=== PATIENT | female | born 1965 | race Caucasian/White ===

== ENCOUNTER 2017-03-29 22:16 | Emergency (ER) | payer MEDICARE, MEDICAID ==
[~2017-03-29] VITALS: Ht 157.5 cm; Wt 63.5 kg
[~2017-03-29 22:16] MED LIST: ALLO300T PO; ALPR2TAB5 PO; ATOR40TA59; CYCL10TA2; DICL50TA2 PO; DICL75TA; DULO60CA44; FLUC200T4 PO; LEVE500T56 PO; LEVE500T6; LISI-334 PO; LISI1TAB5; METO10TA81 PO; NICO1PAT21 TP; OMEP20CA9; OXYC20TA PO; RANI150C PO; RANI150T2 PO; ROTI1PAT2; ROTI1PAT4
[2017-03-29] MEDS ORDERED: IV NORMAL SALINE 1000ML BAG 1,000 ML IV ONE (23:00)
[2017-03-29] MEDS ORDERED: diphenhydrAMINE 50 MG/ML VIAL IVP ONE (23:00)
[2017-03-29] MEDS ORDERED: KETOROLAC 15 MG/ML VIAL. IV ONE (23:00)
[2017-03-29] MEDS ORDERED: METOCLOPRAMIDE HCL 10 MG/2 ML VIAL. IV ONE (23:00)
[2017-03-29 23:15] LABS: BASO # 0.1 x10^3/uL (0.0-0.2); BASO % 1 % (0-3); EOS % 2 % (0-3); HEMATOCRIT 40.2 % (36.0-47.0); HEMOGLOBIN 13.6 g/dL (12.0-15.5); LYMPH # 3.6 x10^3/uL (1.0-4.8); LYMPH % 35 % (24-48); MEAN CORPUSCULAR HEMOGLOBIN 31 pg (25-35); MEAN CORPUSCULAR HGB CONC 34 g/dL (31-37); MEAN CORPUSCULAR VOLUME 92 fL (79-100); MONO % 7 % (0-9); NEUT % 55 % (31-73); PLATELET COUNT 321 x10^3/uL (140-400); RED BLOOD COUNT 4.35 x10^6/uL (3.50-5.40); RED CELL DISTRIBUTION WIDTH 13.4 % (11.5-14.5); WHITE BLOOD COUNT 10.2 x10^3/uL (4.0-11.0)
--- NOTE | 2017-03-29 23:16 | PHYS DOC ---
Past Medical History Past Medical History: Anxiety, Arthritis, COPD, CVA, High Cholesterol, Kidney Stone, Seizure, Other Additional Past Medical Histor: epileptic,RLS,MIGRAINES, vertigo Past Surgical History: Cholecystectomy, Hysterectomy, Other Additional Past Surgical Histo: Left knee,LEG SURG,KID STONE REMOVAL W/ STENT, teeth removal Alcohol Use: None Drug Use: None Adult General Chief Complaint Chief Complaint: SEIZURE HPI HPI Patient is a 51 year old female with a history significant for seizure disorder , vertigo, migraine headaches in the past presents to the ER today secondary to severe headache which resulted in having a migraine. Patient's significant other is at her bedside and he reports that she was complaining of a headache and he turned around his nose that she was having a tonic-clonic seizure. Patient denies any loss of bowel or bladder function, denies biting her tongue, denies any history of pseudoseizures in the past, denies any weakness to her upper or lower 70s. Significant other reports that he has not noticed any facial droop or slurring her speech. It appears that her seizure lasted for approximately to 3 minutes and resolved with a short postictal phase. Patient denies any other symptomatology or headache. Patient reports was gradual in onset not thunderclap. Patient denies any fevers shakes chills vomiting or diarrhea. Patient reports she is nauseous which is typical of her migraines in the past. Patient denies any dysuria frequency urgency. Patient has any weakness to extremities. Patient reports she has not tried any medication prior to coming to the ER for headaches. Patient reports that she takes valproic acid for seizures and she has been compliant with it. Review of systems: Constitutional: Denies fever or chills Eyes: Denies change in visual acuity, redness, or eye pain HENT: Denies nasal congestion or sore throat All other review systems are negative except as documented in the history of present illness. Physical exam: Constitutional: Well developed, well nourished, no acute distress, non-toxic appearance. HENT: Normocephalic, atraumatic, bilateral external ears normal, oropharynx moist, no oral exudates, nose normal. Eyes: PERRLA, EOMI, conjunctiva normal, no discharge. Neck: Normal range of motion, no tenderness, supple, no stridor. Cardiovascular:Heart rate regular rhythm, Lungs & Thorax: Bilateral breath sounds clear to auscultation Abdomen: Bowel sounds normal, soft, no tenderness, no masses, no pulsatile masses. Skin: Warm, dry, no erythema, no rash. Back: No tenderness, no CVA tenderness. Extremities: No tenderness, no cyanosis, no clubbing, ROM intact, no edema. Neurologic: Alert and oriented X 3, normal motor function, normal sensory function, no focal deficits noted. Psychologic: Affect normal, judgement normal, mood normal. Assessment and plan This is a 51-year-old female who presents to the ER today secondary to a migraine headache that precipitated a seizure. Seizure was witnessed by her significant other. There is no evidence of head trauma. Per the patient and her significant other she is back to her baseline mental status. Patient's only complaint currently is her migraine headache. Patient without any other symptomatology. While in the ER the patient be given adequate analgesia for her migraine and we will check a valproic acid level secondary to the seizure that she had. Patient's otherwise clinically and hemodynamically stable for further outpatient evaluation for her headaches/seizures. Patient feels significantly improved after the medication. Patient feels very comfortable with the plan to be discharged home and will follow-up with her primary care physician. Smoking cessation is been discussed with the patient for over 20 minutes. Current Medications Current Medications Current Medications Medications (Trade) Dose Ordered Sig/Osmany Start Time Stop Time Status Last Admin Dose Admin Diphenhydramine HCl (Benadryl) 50 mg 1X ONCE 03/29/17 23:00 03/29/17 23:01 DC 03/29/17 23:18 50 MG Ketorolac Tromethamine (Toradol) 15 mg 1X ONCE 03/29/17 23:00 03/29/17 23:01 DC 03/29/17 23:18 15 MG Metoclopramide HCl (Reglan) 10 mg 1X ONCE 03/29/17 23:00 03/29/17 23:01 DC 03/29/17 23:18 10 MG Sodium Chloride 1,000 ml @ 1,000 mls/hr 1X ONCE 03/29/17 23:00 03/29/17 23:59 03/29/17 23:17 1,000 MLS/HR Allergies Allergies Allergies Coded Allergies Type Severity Reaction Last Updated Verified No Known Drug Allergies 11/22/13 No Current Patient Data Vital Signs Vital Signs Date Time Temp Pulse Resp B/P (MAP) Pulse Ox O2 Delivery O2 Flow Rate FiO2 03/29/17 22:20 97.9 78 14 188/88 (121) 94 Room Air 97.9 Lab Values Laboratory Tests Test 03/29/17 23:05 White Blood Count 10.2 x10^3/uL (4.0-11.0) Red Blood Count 4.35 x10^6/uL (3.50-5.40) Hemoglobin 13.6 g/dL (12.0-15.5) Hematocrit 40.2 % (36.0-47.0) Mean Corpuscular Volume 92 fL (79-100) Mean Corpuscular Hemoglobin 31 pg (25-35) Mean Corpuscular Hemoglobin Concent 34 g/dL (31-37) Red Cell Distribution Width 13.4 % (11.5-14.5) Platelet Count 321 x10^3/uL (140-400) Neutrophils (%) (Auto) 55 % (31-73) Lymphocytes (%) (Auto) 35 % (24-48) Monocytes (%) (Auto) 7 % (0-9) Eosinophils (%) (Auto) 2 % (0-3) Basophils (%) (Auto) 1 % (0-3) Neutrophils # (Auto) 5.6 x10^3uL (1.8-7.7) Lymphocytes # (Auto) 3.6 x10^3/uL (1.0-4.8) Monocytes # (Auto) 0.7 x10^3/uL (0.0-1.1) Eosinophils # (Auto) 0.2 x10^3/uL (0.0-0.7) Basophils # (Auto) 0.1 x10^3/uL (0.0-0.2) Sodium Level 140 mmol/L (136-145) Potassium Level 4.1 mmol/L (3.5-5.1) Chloride Level 103 mmol/L (98-107) Carbon Dioxide Level 32 mmol/L (21-32) Anion Gap 5 (6-14) L Blood Urea Nitrogen 16 mg/dL (7-20) Creatinine 0.7 mg/dL (0.6-1.0) Estimated GFR (Cockcroft-Gault) 87.5 BUN/Creatinine Ratio 23 (6-20) H Glucose Level 104 mg/dL (70-99) H Calcium Level 9.4 mg/dL (8.5-10.1) Total Bilirubin 0.2 mg/dL (0.2-1.0) Aspartate Amino Transferase (AST) 43 U/L (15-37) H Alanine Aminotransferase (ALT) 89 U/L (14-59) H Alkaline Phosphatase 162 U/L (46-116) H Total Protein 7.3 g/dL (6.4-8.2) Albumin 3.6 g/dL (3.4-5.0) Albumin/Globulin Ratio 1.0 (1.0-1.7) Valproic Acid Level mcg/mL (50-100) Valproic Acid Last Dose Date Unk Valproic Acid Last Dose Time Unk Laboratory Tests 03/29/17 23:05 Laboratory Tests 03/29/17 23:05 EKG EKG [] Radiology/Procedures Radiology/Procedures [] Course & Med Decision Making Course & Med Decision Making Pertinent Labs and Imaging studies reviewed. (See chart for details) [] Dragon Disclaimer Dragon Disclaimer This electronic medical record was generated, in whole or in part, using a voice recognition dictation system. Departure Departure Impression: Primary Impression: Migraine Additional Impression: Seizure Disposition: HOME, SELF-CARE Condition: IMPROVED Referrals: DOM BURNETT MD (PCP) Patient Instructions: Migraine Headache, Seizure, Adult Problem Qualifiers JANEEN HURLEY MD Mar 29, 2017 23:16
[2017-03-29 23:23] LABS: ANION GAP 5 (6-14); BLOOD UREA NITROGEN 16 mg/dL (7-20); BUN/CREATININE RATIO 23 (6-20); CALCIUM 9.4 mg/dL (8.5-10.1); CARBON DIOXIDE 32 mmol/L (21-32); CHLORIDE 103 mmol/L (98-107); CREATININE 0.7 mg/dL (0.6-1.0); GFR 87.5; GLUCOSE 104 mg/dL (70-99); POTASSIUM 4.1 mmol/L (3.5-5.1); SODIUM 140 mmol/L (136-145)
[2017-03-29 23:29] LABS: ALBUMIN 3.6 g/dL (3.4-5.0); ALK PHOS 162 U/L (46-116); ALT (SGPT) 89 U/L (14-59); AST (SGOT) 43 U/L (15-37); TOTAL BILIRUBIN 0.2 mg/dL (0.2-1.0); TOTAL PROTEIN 7.3 g/dL (6.4-8.2)
[2017-03-30 00:23] VITALS: BP 167/81
== END 2017-03-30 00:37 | disposition home or self-care (01) ==
LOC: ER 22:16
DX: G43.909 Migraine, unspecified, not intractable, without status migrainosus (principal); G40.909 Epilepsy, unspecified, not intractable, without status epilepticus; J44.9 Chronic obstructive pulmonary disease, unspecified; M19.90 Unspecified osteoarthritis, unspecified site; Z86.73 Personal history of transient ischemic attack (TIA), and cerebral infarction without residual deficits
CPT/HCPCS: 36415; 80053; 80164; 85025; 96361; 96374; 96375; 99284; J1200; J1885; J2765; J7030

== ENCOUNTER → 2017-05-17 | Outpatient (CLI) | payer MEDICARE, MEDICAID ==
[2017-04-15 15:00] VITALS: BP 140/74
--- NOTE | 2017-05-17 15:23 | RAD ---
Exam : Carotid Duplex with Grayscale Ultrasound and Spectral and Color Doppler Analysis: Clinical Indications: Blindness, left eye Comparison study: None available. PQRS Compliance Statement - Stenosis calculations for CT, MR and conventional angiography are based upon measurement of the distal ICA diameter in accordance with the NASCET methodology. Stenosis calculations for carotid ultrasound studies are derived from validated velocity criteria which are known to correlate with the NASCET methodology. Findings: The common, internal and external carotid arteries were examined by grayscale, color and spectral Doppler ultrasound. MIld diffuse atherosclerotic vascular disease is present. There is moderate visual narrowing in the proximal right ICA on color Doppler imaging. Waveform morphology is abnormal, with peak systolic velocities being relatively low at 47 cm/s. Right vertebral flow is antegrade. Atherosclerotic vascular irregularity is seen in the proximal left ICA flow waveform morphology is grossly normal. Peak systolic velocities are within normal limits. Vertebral flow is antegrade on the left RIGHT ICA PV: 47cm/sec RIGHT CCA PV: 41cm/sec RIGHT ICA ED: 18cm/sec RIGHT IC/CCPV: 1.4 RIGHT VERTEBRAL: antegrade flow LEFT ICA PV: 80cm/sec LEFT CCA PV: 77cm/sec LEFT ICA ED: 30cm/sec LEFT IC/CCPV: 1 LEFT VERTEBRAL: antegrade flow <50% ICA Stenosis: PSV < 125cm/s (EDV < 40cm/s; SVR < 2.0) 50-69% ICA Stenosis: PSV < 125-229cm/s (EDV 40-99cm/s; SVR 2.0-3.9) >70% ICA Stenosis: PSV > 230cm/s (EDV >100cm/s; SVR >4.0) Impression: 1. At least mild diffuse atherosclerotic vascular disease. Moderate residual narrowing is present in the proximal right ICA with relatively decreased velocities compared with the contralateral side. Characterization of the degree of stenosis is difficult based on these ultrasound findings. Consider CTA for further characterization. 2. Ultrasound suggests less than 50% stenosis of the left ICA.
== END | disposition home or self-care (01) ==
LOC: US 13:45
PROVIDERS: ATTEND Family Medicine
DX: I65.23 Occlusion and stenosis of bilateral carotid arteries (principal); H54.61 Unqualified visual loss, right eye, normal vision left eye
CPT/HCPCS: 93880

== ENCOUNTER 2017-06-20 06:11 | Emergency (ER) | payer MEDICARE, MEDICAID ==
[~2017-06-20] VITALS: Ht 157.5 cm; Wt 63.5 kg
--- NOTE | 2017-06-20 08:18 | RAD ---
Three view lumbosacral spine History: Pain AP, coned-down lateral and lateral views of the lumbosacral spine were obtained. The vertebral bodies are aligned. There is no loss of vertebral body stature. Intervertebral disc heights are preserved. There is stool scattered throughout visualized portions of the colon. Impression: 1. Constipation. 2. No acute bony abnormality. End Impression
--- NOTE | 2017-06-20 08:31 | PHYS DOC ---
Past Medical History Past Medical History: Anxiety, Arthritis, COPD, CVA, High Cholesterol, Kidney Stone, Seizure, Other Additional Past Medical Histor: epileptic,RLS,MIGRAINES, vertigo Past Surgical History: Cholecystectomy, Hysterectomy, Other Additional Past Surgical Histo: Left knee,LEG SURG,KID STONE REMOVAL W/ STENT, teeth removal Alcohol Use: None Drug Use: None Adult General Chief Complaint Chief Complaint: LOWER BACK PAIN OR INJURY HPI HPI Patient is a 51 year old female who presents to the ED with the complaint of severe pain across her lower back. The pain does not go down into her legs. She denies weakness of her legs, denies bowel or bladder symptoms. Patient states she has chronic pain and takes oxycodone 15 mg 6 times a day for chronic pain in her left knee following a injury. She has been taking this as prescribed but is now having pain in her low back. She did fall about a week ago, thinks her pain might of been related to that, she didn't start hurting very much until a couple of days after the fall. The patient states that she and her have their 1-year-old grandchild at their home. The had placed a baby gate type of structure to keep the child out of the kitchen, the patient tripped over that and fell forward. She did bang up her left knee and left foot as she tripped, but states those are just bruised and she doesn't believe she needs any x-rays. She did not fall onto her back, she fell forward. The pain has worsened since then, it did not hurt immediately after she fell. She does not have chronic back pain. PCP Dr. Abel Review of Systems Review of Systems Constitutional: Denies fever or chills [] Respiratory: Denies cough or shortness of breath [] GI: Denies abdominal pain : Denies dysuria or hematuria [] Musculoskeletal: As in history of present illness Allergies Allergies Allergies Coded Allergies Type Severity Reaction Last Updated Verified hydrocodone Allergy Intermediate Itching 04/15/17 Yes Physical Exam Physical Exam Constitutional: Well developed, well nourished, alert, warm and dry, appears uncomfortable when she is moving on the cart HENT: Normocephalic, atraumatic, bilateral external ears normal, nose normal. [] Eyes: conjunctiva normal, no discharge. [] Neck: Normal range of motion, no stridor. [] Cardiovascular:Heart rate regular rhythm, no murmur [] Lungs & Thorax: Bilateral breath sounds clear to auscultation [] Abdomen: Bowel sounds normal, soft, no tenderness, no masses, no pulsatile masses. [] Skin: Warm, dry, no erythema, no rash. [] Back: No evidence of contusion, no overlying skin color change. Tenderness to palpation across the lower back at approximately the level of the posterior superior iliac spine. No bony point tenderness. No abnormality on inspection or palpation. Extremities: No tenderness, no cyanosis, no clubbing, ROM intact, no edema. [] Neurologic: Alert and oriented X 3, normal motor function, no focal deficits noted. [] Current Patient Data Vital Signs Vital Signs Date Time Temp Pulse Resp B/P (MAP) Pulse Ox O2 Delivery O2 Flow Rate FiO2 06/20/17 09:01 72 18 131/77 (95) 99 Room Air 06/20/17 06:37 97.8 97.8 EKG EKG [] Radiology/Procedures Radiology/Procedures Lumbosacral spine x-rays read by me. No acute bony abnormality.[] Course & Med Decision Making Course & Med Decision Making Pertinent Labs and Imaging studies reviewed. (See chart for details) 51-year-old female complains of about one week of low back pain after a fall. X- rays negative for compression fracture. The pain does not sound radicular. The patient is already on chronic oxycodone 15 mg 6 times a day. I don't feel that increasing her fairly significant opiate dose is the best choice. We will try a short course of prednisone and also ice. See instructions for plan. [] Dragon Disclaimer Dragon Disclaimer This electronic medical record was generated, in whole or in part, using a voice recognition dictation system. Departure Departure Impression: Primary Impression: Back pain Disposition: 01 HOME, SELF-CARE Condition: STABLE Referrals: DOM BURNETT MD (PCP) Patient Instructions: Back Pain, Adult, [id number] Additional Instructions: Continue to take your daily pain medication as prescribed by your primary care doctor. Use ice 15-20 minutes out of every 1-2 hours to the area of pain. You might want to try an [id number] pain patch with lidocaine. We will try a week of prednisone which often helps back pain. If not better after one week of prednisone and pain patch, see your primary care doctor. Scripts Prednisone (PREDNISONE) 20 Mg Tablet 40 MG PO DAILY for BACK PAIN for 5 Days, #10 TAB Prov: LIMA BARR MD 06/20/17 LIMA BARR MD Jun 20, 2017 08:31
[2017-06-20] MEDS ORDERED: PRED20TA PO (08:54)
[2017-06-20 09:01] VITALS: BP 131/77
== END 2017-06-20 09:02 | disposition home or self-care (01) ==
LOC: ER 06:11
DX: M54.5 Low back pain (principal); G89.29 Other chronic pain; M25.562 Pain in left knee; F41.9 Anxiety disorder, unspecified; M19.90 Unspecified osteoarthritis, unspecified site; J44.9 Chronic obstructive pulmonary disease, unspecified; E78.00 Pure hypercholesterolemia, unspecified; G40.909 Epilepsy, unspecified, not intractable, without status epilepticus; G25.81 Restless legs syndrome; Z90.49 Acquired absence of other specified parts of digestive tract; Z90.710 Acquired absence of both cervix and uterus; Z87.442 Personal history of urinary calculi; Z86.73 Personal history of transient ischemic attack (TIA), and cerebral infarction without residual deficits; Z79.891 Long term (current) use of opiate analgesic; Z88.5 Allergy status to narcotic agent
CPT/HCPCS: 72100; 99284

== ENCOUNTER → 2017-07-24 | Outpatient (CLI) | payer MEDICARE, MEDICAID | END | disposition home or self-care (01) | LOC: ECHO 07:51 | DX: H54.40 Blindness, one eye, unspecified eye (principal); I51.7 Cardiomegaly; I36.1 Nonrheumatic tricuspid (valve) insufficiency | CPT/HCPCS: C8929 ==

== ENCOUNTER 2017-09-29 02:19 | Emergency (ER) | payer MEDICARE, MEDICAID ==
[2017-09-29] MEDS: ONDANSETRON PF 4 MG/2 ML VIAL. IV (03:00)
[2017-09-29 03:21] LABS: ADD MAN DIFF? NO
[2017-09-29 03:23] LABS: BASO # 0.1 x10^3/uL (0.0-0.2); BASO % 1 % (0-3); EOS # 0.1 x10^3/uL (0.0-0.7); EOS % 1 % (0-3); HEMATOCRIT 40.1 % (36.0-47.0); HEMOGLOBIN 13.9 g/dL (12.0-15.5); LYMPH # 2.9 x10^3/uL (1.0-4.8); LYMPH % 22 % (24-48); MEAN CORPUSCULAR HEMOGLOBIN 31 pg (25-35); MEAN CORPUSCULAR HGB CONC 35 g/dL (31-37); MEAN CORPUSCULAR VOLUME 90 fL (79-100); MONO # 0.8 x10^3/uL (0.0-1.1); MONO % 6 % (0-9); NEUT % 70 % (31-73); PLATELET COUNT 299 x10^3/uL (140-400); RED BLOOD COUNT 4.45 x10^6/uL (3.50-5.40); RED CELL DISTRIBUTION WIDTH 13.7 % (11.5-14.5); WHITE BLOOD COUNT 12.9 x10^3/uL (4.0-11.0)
[2017-09-29 03:32] LABS: ANION GAP 8 (6-14); BLOOD UREA NITROGEN 18 mg/dL (7-20); CALCIUM 9.1 mg/dL (8.5-10.1); CARBON DIOXIDE 29 mmol/L (21-32); CHLORIDE 106 mmol/L (98-107); CREATININE 0.6 mg/dL (0.6-1.0); GFR 104.2; GLUCOSE 140 mg/dL (70-99); SODIUM 143 mmol/L (136-145)
[2017-09-29 03:36] LABS: POTASSIUM 2.9 mmol/L (3.5-5.1)
[2017-09-29] MEDS: POTASSIUM CHLORIDE 20 MEQ TABLET.ER. PO (03:49)
== END 2017-09-29 04:00 | disposition home or self-care (01) ==
LOC: ER 02:19
DX: R42 Dizziness and giddiness (principal); E78.00 Pure hypercholesterolemia, unspecified; G40.909 Epilepsy, unspecified, not intractable, without status epilepticus; J44.9 Chronic obstructive pulmonary disease, unspecified; G25.81 Restless legs syndrome; Z87.442 Personal history of urinary calculi; G43.909 Migraine, unspecified, not intractable, without status migrainosus; Z86.73 Personal history of transient ischemic attack (TIA), and cerebral infarction without residual deficits; Z90.49 Acquired absence of other specified parts of digestive tract; Z90.710 Acquired absence of both cervix and uterus; Z88.5 Allergy status to narcotic agent
CPT/HCPCS: 36415; 80048; 85025; 96374; 99284-25; J2405

== ENCOUNTER → 2017-10-09 | Outpatient (CLI) | payer MEDICARE, MEDICAID | END | disposition home or self-care (01) | LOC: RAD 10:58 | DX: R05 Cough (principal); R74.8 Abnormal levels of other serum enzymes | CPT/HCPCS: 71046 ==

== ENCOUNTER → 2017-11-19 | Outpatient (CLI) | payer MEDICARE, MEDICAID ==
[2017-11-19] MEDS: IOHEXOL 300 MG/ML 100ML VIAL. IV (09:02)
== END | disposition home or self-care (01) ==
LOC: CT 08:48
DX: R91.8 Other nonspecific abnormal finding of lung field (principal)
CPT/HCPCS: 71260; Q9967

== ENCOUNTER 2017-11-24 10:03 | Emergency (ER) | payer MEDICARE, MEDICAID | END 2017-11-24 10:30 | disposition home or self-care (01) | LOC: ER 10:30 | DX: F41.9 Anxiety disorder, unspecified (principal); F41.0 Panic disorder [episodic paroxysmal anxiety]; E78.00 Pure hypercholesterolemia, unspecified; G40.909 Epilepsy, unspecified, not intractable, without status epilepticus; J44.9 Chronic obstructive pulmonary disease, unspecified; Z86.73 Personal history of transient ischemic attack (TIA), and cerebral infarction without residual deficits; G43.909 Migraine, unspecified, not intractable, without status migrainosus; Z88.5 Allergy status to narcotic agent | CPT/HCPCS: 99284 ==

== ENCOUNTER 2018-01-09 21:19 | Emergency (ER) | payer MEDICARE, MEDICAID ==
[2018-01-09] MEDS: ONDANSETRON ODT 4 MG TAB.RAPDIS. PO (21:38)
[2018-01-09] MEDS: MORPHINE SULFATE 10 MG/ML VIAL. IM (21:38)
== END 2018-01-09 21:45 | disposition home or self-care (01) ==
LOC: ER 21:19
DX: G89.29 Other chronic pain (principal); M54.5 Low back pain; M25.562 Pain in left knee; F41.9 Anxiety disorder, unspecified; M19.90 Unspecified osteoarthritis, unspecified site; E78.00 Pure hypercholesterolemia, unspecified; G43.909 Migraine, unspecified, not intractable, without status migrainosus; Z90.49 Acquired absence of other specified parts of digestive tract; Z90.710 Acquired absence of both cervix and uterus; Z86.73 Personal history of transient ischemic attack (TIA), and cerebral infarction without residual deficits; Z88.5 Allergy status to narcotic agent
CPT/HCPCS: 96372; 99283; J2270; Q0162

== ENCOUNTER 2018-01-21 19:01 | Emergency (ER) | payer MEDICARE, MEDICAID ==
[2018-01-21 19:55] LABS: ADD MAN DIFF? NO
[2018-01-21 19:57] LABS: BASO # 0.1 x10^3/uL (0.0-0.2); BASO % 1 % (0-3); EOS # 0.2 x10^3/uL (0.0-0.7); EOS % 2 % (0-3); HEMATOCRIT 39.9 % (36.0-47.0); HEMOGLOBIN 13.7 g/dL (12.0-15.5); LYMPH # 3.1 x10^3/uL (1.0-4.8); LYMPH % 26 % (24-48); MEAN CORPUSCULAR HEMOGLOBIN 31 pg (25-35); MEAN CORPUSCULAR HGB CONC 34 g/dL (31-37); MEAN CORPUSCULAR VOLUME 90 fL (79-100); MONO # 0.8 x10^3/uL (0.0-1.1); MONO % 7 % (0-9); NEUT # 7.8 x10^3uL (1.8-7.7); NEUT % 65 % (31-73); PLATELET COUNT 300 x10^3/uL (140-400); RED BLOOD COUNT 4.44 x10^6/uL (3.50-5.40); RED CELL DISTRIBUTION WIDTH 13.6 % (11.5-14.5); WHITE BLOOD COUNT 12.1 x10^3/uL (4.0-11.0)
[2018-01-21 20:10] LABS: ANION GAP 11 (6-14); BLOOD UREA NITROGEN 19 mg/dL (7-20); BUN/CREATININE RATIO 32 (6-20); CALCIUM 9.1 mg/dL (8.5-10.1); CARBON DIOXIDE 26 mmol/L (21-32); CHLORIDE 104 mmol/L (98-107); CREATININE 0.6 mg/dL (0.6-1.0); GFR 104.2; GLUCOSE 102 mg/dL (70-99); POTASSIUM 3.8 mmol/L (3.5-5.1); SODIUM 141 mmol/L (136-145)
[2018-01-21 20:16] LABS: ALBUMIN 3.5 g/dL (3.4-5.0); ALK PHOS 132 U/L (46-116); ALT (SGPT) 26 U/L (14-59); AST (SGOT) 21 U/L (15-37); LIPASE 338 U/L (73-393); TOTAL BILIRUBIN 0.3 mg/dL (0.2-1.0); TOTAL PROTEIN 7.1 g/dL (6.4-8.2)
[2018-01-21] MEDS: IV NORMAL SALINE 1000ML BAG 1,000 ML IV (20:21)
[2018-01-21] MEDS: ONDANSETRON PF 4 MG/2 ML VIAL. IV (20:22)
[2018-01-21] MEDS: MORPHINE SULFATE 4 MG/ML DISP.SYRIN. IV (20:22)
[2018-01-21] MEDS: MECLIZINE HCL 12.5 MG TABLET. PO (20:22)
== END 2018-01-21 21:14 | disposition home or self-care (01) ==
LOC: ER 21:14
DX: G43.909 Migraine, unspecified, not intractable, without status migrainosus (principal); R42 Dizziness and giddiness; G89.29 Other chronic pain; Z88.5 Allergy status to narcotic agent; Z88.8 Allergy status to other drugs, medicaments and biological substances
CPT/HCPCS: 36415; 70450; 80053; 83690; 85025; 96361; 96374; 96375; 99285-25; J2270; J2405; J7030; J8597

== ENCOUNTER 2018-01-31 11:43 | Emergency (ER) | payer MEDICARE, MEDICAID ==
[2018-01-31] MEDS: IV NORMAL SALINE 1000ML BAG 1,000 ML IV (13:21)
[2018-01-31] MEDS: KETOROLAC 30 MG/ML INJ. IV (13:22)
[2018-01-31] MEDS: diphenhydrAMINE 50 MG/ML VIAL IVP (13:23)
[2018-01-31] MEDS: PROCHLORPERAZINE 10 MG/2 ML VIAL. IV (13:23)
== END 2018-01-31 14:12 | disposition home or self-care (01) ==
LOC: ER 11:43
DX: G43.909 Migraine, unspecified, not intractable, without status migrainosus (principal); E78.00 Pure hypercholesterolemia, unspecified; I10 Essential (primary) hypertension; G89.29 Other chronic pain; Z88.5 Allergy status to narcotic agent; Z88.8 Allergy status to other drugs, medicaments and biological substances
CPT/HCPCS: 96374; 96375; 99284-25; J0780; J1200; J1885; J7030

== ENCOUNTER 2018-04-14 18:07 | Emergency (ER) | payer MEDICARE, MEDICAID ==
[~2018-04-14] VITALS: Ht 152.4 cm; Wt 59.0 kg
[~2018-04-14 18:07] MED LIST changes: +PRED20TA PO
[2018-04-14 18:28] VITALS: BP 153/74
--- NOTE | 2018-04-14 18:29 | PHYS DOC ---
Past Medical History Past Medical History: Arthritis, Depression, High Cholesterol, Hypertension, Kidney Stone, Migraines, Seizure, Other Additional Past Medical Histor: CHRONIC BACK PAIN, GOUT, BLIND L EYE Past Surgical History: Cholecystectomy, Knee Replacement, Other Additional Past Surgical Histo: L KNEE REPLACEMENT, LITHOTRIPSY Alcohol Use: None Drug Use: None Adult General Chief Complaint Chief Complaint: BACK PAIN - NO INJURY HPI HPI Patient is a 52 year old female with a history of chronic knee pain, chronic low back pain, who presents today complaining of exacerbation of her chronic back pain and knee pain. Patient states she normally gets oxycodone from her PCP , she states the PCP has been cutting back on her pain medications. She states she only got 135 tablets instead of 180 tablets of oxycodone. She is requesting we give her more pain medicine. Informed patient will not give her any narcotic pain medicine i recommended a shot of Toradol. Recommended she follows up with the PCP of the pain clinic. Patient stood up and signed out AMA Ktracs shows she received 135 tablets of oxycodone 15 mg on 04/05/[address] Burnett Review of Systems Review of Systems Constitutional: Denies fever or chills [] Musculoskeletal: Reports chronic low back pain and chronic knee pain Integument: Denies rash or skin lesions [] Neurologic: Denies headache, focal weakness or sensory changes [] All other systems were reviewed and found to be within normal limits, except as documented in this note. Allergies Allergies Allergies Coded Allergies Type Severity Reaction Last Updated Verified divalproex sodium Allergy Intermediate 01/21/18 Yes hydrocodone Allergy Intermediate Itching 04/15/17 Yes topiramate Allergy Intermediate 01/21/18 Yes Physical Exam Physical Exam Constitutional: Well developed, well nourished, no acute distress, non-toxic appearance. []] Abdomen: Bowel sounds normal, soft, no tenderness, no masses, no pulsatile masses. [] Skin: Warm, dry, no erythema, no rash. [] Back: No tenderness, no CVA tenderness. [] Extremities: No tenderness, no cyanosis, no clubbing, ROM intact, no edema. [] Neurologic: Alert and oriented X 3, normal motor function, normal sensory function, no focal deficits noted. [] Psychologic: Affect normal, judgement normal, mood normal. [] EKG EKG [] Radiology/Procedures Radiology/Procedures [] Course & Med Decision Making Course & Med Decision Making Pertinent Labs and Imaging studies reviewed. (See chart for details) See history of present illness Dragon Disclaimer Dragon Disclaimer This electronic medical record was generated, in whole or in part, using a voice recognition dictation system. Departure Departure Impression: Primary Impression: Chronic low back pain Additional Impressions: Chronic pain of left knee Narcotic dependence Disposition: 07 AGAINST MEDICAL ADVICE Condition: STABLE Referrals: DOM BURNETT MD (PCP) Problem Qualifiers Primary Impression: Chronic low back pain Back pain laterality: bilateral Sciatica presence: with sciatica Sciatica laterality: bilateral sciatica Qualified Codes: M54.42 - Lumbago with sciatica, left side; M54.41 - Lumbago with sciatica, right side; G89.29 - Other chronic pain HELLEN RUDD APRN Apr 14, 2018 18:29
== END 2018-04-14 18:23 | disposition left against medical advice (07) ==
LOC: ER 18:07
DX: G89.29 Other chronic pain (principal); M54.9 Dorsalgia, unspecified; M25.562 Pain in left knee; F11.20 Opioid dependence, uncomplicated; E78.00 Pure hypercholesterolemia, unspecified; I10 Essential (primary) hypertension; Z88.5 Allergy status to narcotic agent; Z88.8 Allergy status to other drugs, medicaments and biological substances
CPT/HCPCS: 99281

== ENCOUNTER 2018-05-18 15:08 | Emergency (ER) | payer MEDICARE, MEDICAID ==
[~2018-05-18] VITALS: Ht 157.5 cm; Wt 54.4 kg
[2018-05-18 15:09] VITALS: BP 167/76
[2018-05-18 16:15] LABS: BASO # 0.1 x10^3/uL (0.0-0.2); BASO % 1 % (0-3); EOS # 0.1 x10^3/uL (0.0-0.7); EOS % 2 % (0-3); HEMATOCRIT 42.6 % (36.0-47.0); HEMOGLOBIN 14.4 g/dL (12.0-15.5); LYMPH # 1.8 x10^3/uL (1.0-4.8); LYMPH % 23 % (24-48); MEAN CORPUSCULAR HEMOGLOBIN 31 pg (25-35); MEAN CORPUSCULAR HGB CONC 34 g/dL (31-37); MEAN CORPUSCULAR VOLUME 92 fL (79-100); MONO # 0.4 x10^3/uL (0.0-1.1); MONO % 5 % (0-9); NEUT # 5.5 x10^3uL (1.8-7.7); NEUT % 69 % (31-73); PLATELET COUNT 248 x10^3/uL (140-400); RED BLOOD COUNT 4.62 x10^6/uL (3.50-5.40); RED CELL DISTRIBUTION WIDTH 14.4 % (11.5-14.5)
--- NOTE | 2018-05-18 16:19 | RAD ---
CT HEAD WO CONTRAST dated 05/18/2018 4:02 PM Indication: CVA.DIZZINESS, HX OF STROKE IN 2011,PRIOR SENT. Comparison: 01/21/2018 Technique: Contiguous axial imaging of the head performed from skull base to vertex. No contrast administered. One or more of the following individualized dose reduction techniques were utilized for this examination: 1. Automated exposure control 2. Adjustment of the mA and/or kV according to patient size 3. Use of iterative reconstruction technique Findings: Ventricles and sulci are within normal limits for age. No midline shift or mass effect. Minimal patchy low density in the deep/subcortical periventricular white matter. No hemorrhage or extra-axial collection. Posterior fossa and brainstem unremarkable. Visualized paranasal sinuses and mastoid air cells are clear. No apparent calvarial abnormality. IMPRESSION: 1. No evidence of acute intracranial hemorrhage or mass. 2. Mild chronic small vessel ischemic changes and atrophy. Electronically signed by: Chandrakant Coombs MD (05/18/2018 4:15 PM) [facility] – [place]
--- NOTE | 2018-05-18 16:19 | RAD ---
PORTABLE CHEST 1V dated 05/18/2018 3:36 PM. Comparison: 10/09/2017 Clinical Indication: Weakness and fatigue. Findings: Single upright portable exam performed. Heart and mediastinal contours are within normal limits. Lungs are clear without focal consolidation. Vascular interstitium within normal limits. No pleural effusion or pneumothorax. Impression: Negative portable chest. Electronically signed by: Chandrakant Coombs MD (05/18/2018 4:16 PM) [facility] [place]
[2018-05-18 16:20] LABS: CALCIUM 9.1 mg/dL (8.5-10.1); CREATININE 0.8 mg/dL (0.6-1.0); GFR 74.7; POTASSIUM 3.4 mmol/L (3.5-5.1)
[2018-05-18 16:21] LABS: BILIRUBIN,URINE NEGATIVE (NEG); CLARITY,URINE CLEAR; COLOR,URINE YELLOW; NITRITE,URINE NEGATIVE (NEG); PROTEIN,URINE NEGATIVE (NEG-TRACE); UROBILINOGEN,URINE 0.2 mg/dL (0.2 mg/dL)
--- NOTE | 2018-05-18 16:26 | PHYS DOC ---
Past Medical History Past Medical History: Anemia, Anxiety, COPD, Hypotension, Renal Failure, Seizure, Other Additional Past Medical Histor: vertigo,abd pain,chronic lindsay,hypokalemia,syncopy ,chronic back pain,narc dep Past Surgical History: Other Additional Past Surgical Histo: L KNEE REPLACEMENT, LITHOTRIPSY Alcohol Use: None Drug Use: Marijuana Adult General Chief Complaint Chief Complaint: DIZZY/LIGHT HEADED HPI HPI Patient is a 52 year old female who presents with dizziness and headache of which the dizziness. This morning. Patient denies any nausea, vomiting, diarrhea. Patient had left-sided chest pain to 3 days ago but denies any now. Patient has a history of vertigo, COPD, acute renal failure, chronic back and knee pain, migraines daily, stroke with left eye blindness, seizures, soon-to-be , hypokalemia, hypo-magnesium. She is alert and oriented. Patient states she also feels some weakness. She states is more when she goes to stand up that she feels the dizziness. Patient states that she did take 2 ibuprofen and her oxycodone 15 mg today. Patient rates her pain a 7 out of 10. Patient states that this headache feels like her usual headaches that she gets every day. Patient states she had a seizure 2 days ago. Patient states she is taking her medications. Patient states that she does smoke some marijuana. Patient is allergic to hydrocodone, Topiramate, divalproex. Review of Systems Review of Systems Constitutional: Denies fever or chills [] Eyes: Denies change in visual acuity, redness, or eye pain [] HENT: Denies nasal congestion or sore throat [] Respiratory: Denies cough or shortness of breath [] Cardiovascular: Left-sided chest pain 3 days ago GI: Denies abdominal pain, nausea, vomiting, bloody stools or diarrhea [] : Denies dysuria or hematuria [] Musculoskeletal: Denies back pain or joint pain [] Integument: Denies rash or skin lesions [] Neurologic: Chronic headache, weakness. Dizziness, Denies sensory changes [] All other systems were reviewed and found to be within normal limits, except as documented in this note. Current Medications Current Medications Current Medications Medications (Trade) Dose Ordered Sig/Osmany Start Time Stop Time Status Last Admin Dose Admin Diphenhydramine HCl (Benadryl) 25 mg 1X ONCE 05/18/18 18:15 05/18/18 18:16 DC 05/18/18 18:16 25 MG Meclizine HCl (Antivert) 25 mg 1X ONCE 05/18/18 16:45 05/18/18 16:46 DC 05/18/18 16:55 25 MG Prochlorperazine Edisylate (Compazine) 10 mg 1X ONCE 05/18/18 17:15 05/18/18 17:16 DC Allergies Allergies Allergies Coded Allergies Type Severity Reaction Last Updated Verified divalproex sodium Allergy Intermediate 01/21/18 Yes hydrocodone Allergy Intermediate Itching 04/15/17 Yes topiramate Allergy Intermediate 01/21/18 Yes Physical Exam Physical Exam Constitutional: Well developed, well nourished, no acute distress, non-toxic appearance. [] HENT: Normocephalic, atraumatic, bilateral external ears normal, oropharynx moist, no oral exudates, nose normal. [] Eyes: PERRLA, EOMI, conjunctiva normal, no discharge. [] Neck: Normal range of motion, no tenderness, supple, no stridor. [] Cardiovascular:Heart rate regular rhythm, no murmur [] Lungs & Thorax: Bilateral upper breath sounds clear to auscultation, bilateral lower breath sounds diminished. [] Abdomen: Bowel sounds normal, soft, no tenderness, no masses, no pulsatile masses. [] Skin: Warm, dry, no erythema, no rash. [] Back: No tenderness, no CVA tenderness. [] Extremities: No tenderness, no cyanosis, no clubbing, ROM intact, no edema. [] Neurologic: Alert and oriented X 3, normal motor function, normal sensory function, no focal deficits noted. Left eye blindness from past stroke.[] Psychologic: Affect normal, judgement normal, mood normal. [] Current Patient Data Vital Signs Vital Signs Date Time Temp Pulse Resp B/P (MAP) Pulse Ox O2 Delivery O2 Flow Rate FiO2 05/18/18 15:09 98.0 68 12 167/76 (106) 97 Room Air 98.0 Lab Values Laboratory Tests Test 05/18/18 15:40 05/18/18 16:05 White Blood Count 8.0 x10^3/uL (4.0-11.0) Red Blood Count 4.62 x10^6/uL (3.50-5.40) Hemoglobin 14.4 g/dL (12.0-15.5) Hematocrit 42.6 % (36.0-47.0) Mean Corpuscular Volume 92 fL (79-100) Mean Corpuscular Hemoglobin 31 pg (25-35) Mean Corpuscular Hemoglobin Concent 34 g/dL (31-37) Red Cell Distribution Width 14.4 % (11.5-14.5) Platelet Count 248 x10^3/uL (140-400) Neutrophils (%) (Auto) 69 % (31-73) Lymphocytes (%) (Auto) 23 % (24-48) L Monocytes (%) (Auto) 5 % (0-9) Eosinophils (%) (Auto) 2 % (0-3) Basophils (%) (Auto) 1 % (0-3) Neutrophils # (Auto) 5.5 x10^3uL (1.8-7.7) Lymphocytes # (Auto) 1.8 x10^3/uL (1.0-4.8) Monocytes # (Auto) 0.4 x10^3/uL (0.0-1.1) Eosinophils # (Auto) 0.1 x10^3/uL (0.0-0.7) Basophils # (Auto) 0.1 x10^3/uL (0.0-0.2) Sodium Level 142 mmol/L (136-145) Potassium Level 3.4 mmol/L (3.5-5.1) L Chloride Level 105 mmol/L (98-107) Carbon Dioxide Level 27 mmol/L (21-32) Anion Gap 10 (6-14) Blood Urea Nitrogen 17 mg/dL (7-20) Creatinine 0.8 mg/dL (0.6-1.0) Estimated GFR (Cockcroft-Gault) 74.7 Glucose Level 131 mg/dL (70-99) H Calcium Level 9.1 mg/dL (8.5-10.1) Troponin I Quantitative < 0.017 ng/mL (0.000-0.055) Urine Collection Type Unknown Urine Color Yellow Urine Clarity Clear Urine pH 6.0 Urine Specific [place] >=1.030 Urine Protein Negative mg/dL (NEG-TRACE) Urine Glucose (UA) Negative mg/dL (NEG) Urine Ketones (Stick) Negative mg/dL (NEG) Urine Blood Negative (NEG) Urine Nitrite Negative (NEG) Urine Bilirubin Negative (NEG) Urine Urobilinogen Dipstick 0.2 mg/dL (0.2 mg/dL) Urine Leukocyte Esterase Negative (NEG) Urine RBC Occ /HPF (0-2) Urine WBC 1-4 /HPF (0-4) Urine Squamous Epithelial Cells Many /LPF Urine Bacteria Few /HPF (0-FEW) Urine Mucus Slight /LPF Laboratory Tests 05/18/18 15:40 Laboratory Tests 05/18/18 15:40 EKG EKG Sinus rhythm and no STEMI Interpretation Time: [address] Michele Radiology/Procedures Radiology/Procedures CT head, chest x-ray Impressions: [facility] [address] [place], [place] [id number] IMAGING REPORT Signed PATIENT: PREM CUI ACCOUNT: [id number] : 1965 LOCATION: ER AGE: 52 SEX: F EXAM STATUS: PRE ER ORD. PHYSICIAN: NAWAF DUPREE CLINICAL RESOURCE NURSE REASON: dizziness, hx stroke PROCEDURE: CT HEAD WO CONTRAST CT HEAD WO CONTRAST dated 05/18/2018 4:02 PM Indication: CVA.DIZZINESS, HX OF STROKE IN 2010,PRIOR SENT. Comparison: 01/21/2018 Technique: Contiguous axial imaging of the head performed from skull base to vertex. No contrast administered. One or more of the following individualized dose reduction techniques were utilized for this examination: 1. Automated exposure control 2. Adjustment of the mA and/or kV according to patient size 3. Use of iterative reconstruction technique Findings: Ventricles and sulci are within normal limits for age. No midline shift or mass effect. Minimal patchy low density in the deep/subcortical periventricular white matter. No hemorrhage or extra-axial collection. Posterior fossa and brainstem unremarkable. Visualized paranasal sinuses and mastoid air cells are clear. No apparent calvarial abnormality. IMPRESSION: 1. No evidence of acute intracranial hemorrhage or mass. 2. Mild chronic small vessel ischemic changes and atrophy. Electronically signed by: Chandrakant Coombs MD (05/18/2018 4:15 PM) [facility] [place] SIGNED BY: CHANDRAKANT COOMBS MD DATE: 05/18/181613 [facility] [address] [place] [address] IMAGING REPORT Signed PATIENT: PREM CUI ACCOUNT: [id number] : 1965 LOCATION: ER AGE: 52 SEX: F EXAM STATUS: PRE ER ORD. PHYSICIAN: NAWAF DUPREE APRN REASON: weakness PROCEDURE: PORTABLE CHEST 1V PORTABLE CHEST 1V dated 05/18/2018 3:36 PM. Comparison: 10/09/2017 Clinical Indication: Weakness and fatigue. Findings: Single upright portable exam performed. Heart and mediastinal contours are within normal limits. Lungs are clear without focal consolidation. Vascular interstitium within normal limits. No pleural effusion or pneumothorax. Impression: Negative portable chest. Electronically signed by: Chandrakant Coombs MD (05/18/2018 4:16 PM) [facility] [place] and SIGNED BY: CHANDRAKANT COOMBS MD DATE: 05/18/181615 Course & Med Decision Making Course & Med Decision Making Patient is a 52 year old female who presents with dizziness and headache of which the dizziness This morning. Patient denies any nausea, vomiting, diarrhea. Patient had left-sided chest pain to 3 days ago but denies any now. Patient has a history of vertigo, COPD, acute renal failure, chronic back and knee pain, migraines daily, stroke with left eye blindness, seizures, soon-to-be , hypokalemia, hypo-magnesium. Vital signs are 167/76, 97% on room air, 70 heart rate. She is alert and oriented. Patient states she also feels some weakness. She states is more when she goes to stand up that she feels the dizziness. Patient states that she did take 2 ibuprofen and her oxycodone 15 mg today. Patient rates her pain a 7 out of 10. Patient states that this headache feels like her usual headaches that she gets every day for the past couple of months. Patient states she had a seizure 2 days ago. Patient states she is taking her medications. Patient states that she does smoke some marijuana. Patient is allergic to hydrocodone, Topiramate, divalproex. Lungs are clear to upper lobes but diminished in lower lobes. Heart rate regular no murmur. States she has a chronic cough that is no worse than her usual cough. Afebrile. No edema and extremities. Patient walks with a steady gait and walked from her room to the bathroom is able to give a urine sample. PERRLA. Romberg test negative. Patient has equal scenic artist and strength in all extremities. Orthostatic blood pressures were layin/66, 60 rate; sittin/68, 67 heart rate; standin/72 and 69 heart rate. EKG is sinus rhythm and no STEMI. Denies any shortness of air, chest pain, numbness or tingling, nausea, vomiting, diarrhea. Skin pink warm and dry. Patient speaks in full clear sentences. CT of head and chest x-ray show no acute findings. Blood work is unremarkable. Ordered the patient a dose of meclizine, benadryl. Patient is stable and in no distress. 1819: I went into to speak with patient and she states she is feeling better. Patient is alert and oriented. Patient states she is ready to leave. Patient has no new or worsening symptoms. Patient is to follow up wit her primary care Sunday. Dragon Disclaimer Pam Disclaimer This electronic medical record was generated, in whole or in part, using a voice recognition dictation system. NIHSS Stroke Scale NIH Stroke Scale: NIH Stroke Scale Response (Comments) Value Level of Consciousness: 0 Alert/Responsive 0 LOC Questions: 0 Answers both correctly 0 LOC Commands: 0 Performs both tasks 0 Best Gaze: 0 Normal 0 Visual: 1 Partial hemianopia 1 Facial Palsy: 0 Normal, symmetrical 0 Motor - Left Arm 0 No drift 0 Motor - Right Arm 0 No drift 0 Motor - Left Leg 0 No drift 0 Motor: Right Leg 0 No drift 0 Limb Ataxia: 0 Absent 0 Sensory: 0 No loss 0 Best Language: 0 Normal 0 Dysathria: 0 Normal 0 Extinction and Inattention: 0 Normal (PMH stroke with left eye blindness) 0 Total 1 Departure Departure Impression: Primary Impression: Vertigo Additional Impression: Migraine Disposition: HOME, SELF-CARE Condition: STABLE Referrals: DOM BURNETT MD (PCP) Patient Instructions: Migraine Headache, Vertigo Additional Instructions: Follow-up with her primary care doctor on Sunday. Take medications as prescribed. Problem Qualifiers Additional Impression: Migraine Migraine type: unspecified Status migrainosus presence: without status migrainosus Intractability: not intractable Qualified Codes: G43.909 - Migraine, unspecified, not intractable, without status migrainosus NAWAF DUPREE CLINICAL RESOURCE NURSE May 18, 2018 16:26
[2018-05-18 16:41] LABS: RBC,URINE OCC /HPF (0-2)
[2018-05-18 16:42] LABS: BACTERIA,URINE FEW /HPF (0-FEW); SQUAMOUS EPITHELIAL CELL,UR MANY /LPF
[2018-05-18] MEDS ORDERED: MECLIZINE HCL 12.5 MG TABLET. PO ONE (16:45)
[2018-05-18] MEDS: PROCHLORPERAZINE 10 MG/2 ML VIAL. IV ONE ×2 (17:15→17:27)
[2018-05-18] MEDS ORDERED: diphenhydrAMINE 50 MG/ML VIAL IVP ONE (17:15)
[2018-05-18] MEDS ORDERED: diphenhydrAMINE HCL 25 MG CAPSULE PO ONE (18:15)
--- NOTE | 2018-05-19 07:26 | EKG ---
[facility] [address] [place] [address] Test Date: 2018-05-18 Test Time: 15:39:18 Pat Name: PREM CUI Department: Room: Gender: Female Forensic Toxicologist: : 1965 Requested By: NAWAF DUPREE Order Number: [id number] Reading MD: Reuben Mir MD Measurements Intervals [place] Rate: 63 P: 41 ND: 140 QRS: -23 QRSD: 92 T: 31 QT: 400 QTc: 412 Interpretive Statements SINUS RHYTHM Electronically Signed On 05-20-2018 14:24:54 CEMENTER HELPER by Reuben Mri MD
== END 2018-05-18 18:35 | disposition home or self-care (01) ==
LOC: ER 15:08
DX: G43.909 Migraine, unspecified, not intractable, without status migrainosus (principal); R42 Dizziness and giddiness; R07.89 Other chest pain; J44.9 Chronic obstructive pulmonary disease, unspecified; G89.29 Other chronic pain; F41.9 Anxiety disorder, unspecified; I69.398 Other sequelae of cerebral infarction; H54.62 Unqualified visual loss, left eye, normal vision right eye; Z88.5 Allergy status to narcotic agent; Z88.8 Allergy status to other drugs, medicaments and biological substances
CPT/HCPCS: 36415; 70450; 71045; 80048; 81001; 84484; 85025; 93005; 99285; J8597; Q0163; J0780

== ENCOUNTER 2018-08-22 14:10 | Emergency (ER) | payer MEDICARE, MEDICAID ==
[~2018-08-22 14:10] MED LIST changes: +OMEP20CA10; -OMEP20CA9
== END 2018-08-22 15:50 | disposition left against medical advice (07) ==
LOC: ER 14:10
DX: R53.1 Weakness (principal); Z53.21 Procedure and treatment not carried out due to patient leaving prior to being seen by health care provider

== ENCOUNTER 2018-08-24 21:17 | Emergency (ER) | payer MEDICARE, MEDICAID ==
[~2018-08-24] VITALS: Ht 157.5 cm; Wt 55.8 kg
[2018-08-24 21:30] VITALS: BP 124/71
--- NOTE | 2018-08-24 21:54 | PHYS DOC ---
Past Medical History Past Medical History: Anemia, Anxiety, COPD, Hypotension, Renal Failure, Seizure, Other Additional Past Medical Histor: vertigo,abd pain,chronic lindsay,hypokalemia,syncope ,chronic back pain,narc dep Past Surgical History: Other Additional Past Surgical Histo: L KNEE REPLACEMENT, LITHOTRIPSY Alcohol Use: None Drug Use: Marijuana Adult General Chief Complaint Chief Complaint: SHORTNESS OF BREATH HPI HPI Patient is a 53 year old female who presents to the emergency room with complaints of pain in her right ribs that increases with deep breath or coughing. Patient states she went to her primary care doctor yesterday who said she thinks that the patient still has pneumonia after being diagnosed with pneumonia about one month ago. Patient states her primary care doctor did not prescribe her any more medications for treatment of the pneumonia. She has been taking her oxycodone as prescribed with little relief of her symptoms. She states that the pain is reproducible with palpation, cough, and deep breath. She denies any palpitations, substernal chest pain, swelling of extremities, rapid heart rate, or fever. Patient states she feels short of breath. Patient reports that she smokes half pack cigarettes a day. She denies any recent fall or injury. Review of Systems Review of Systems Constitutional: Denies fever or chills [] Eyes: Denies redness, or eye pain [] HENT: Denies nasal congestion or sore throat; reports bilateral ear pain[] Respiratory: reports dry cough, shortness of breath, and right rib pain Cardiovascular: No additional information not addressed in HPI [] GI: Denies abdominal pain, nausea, vomiting, or diarrhea [] Musculoskeletal: Denies back pain or joint pain [] Integument: Denies rash or skin lesions [] Neurologic: Denies headache, focal weakness or sensory changes [] Complete systems were reviewed and found to be within normal limits, except as documented in this note. Current Medications Current Medications Current Medications Medications (Trade) Dose Ordered Sig/Osmany Start Time Stop Time Status Last Admin Dose Admin Albuterol/ Ipratropium (Duoneb) 3 ml 1X ONCE 08/24/18 22:00 08/24/18 22:01 DC 08/24/18 22:17 3 ML Dexamethasone Sodium Phosphate (Decadron) 10 mg 1X ONCE 08/24/18 22:00 08/24/18 22:01 DC 08/24/18 22:40 10 MG Magnesium Oxide (Magnesium Oxide) 400 mg DAILY 08/25/18 09:00 Potassium Chloride (Klor-Con) 40 meq 1X ONCE 08/24/18 23:15 08/24/18 23:16 DC Allergies Allergies Allergies Coded Allergies Type Severity Reaction Last Updated Verified divalproex sodium Allergy Intermediate 01/21/18 Yes hydrocodone Allergy Intermediate Itching 04/15/17 Yes topiramate Allergy Intermediate 01/21/18 Yes Physical Exam Physical Exam Constitutional: Well developed, well nourished, no acute distress, non-toxic appearance. [] HENT: Normocephalic, atraumatic, bilateral external ears normal, bilateral TMs are normal, posterior pharynx is normal, oropharynx moist, no oral exudates, nose normal. [] Eyes: conjunctiva normal, no discharge. [] Neck: Normal range of motion, no stridor. [] Cardiovascular:Heart rate regular rhythm, no murmur [] Lungs & Thorax: Bilateral breath sounds coarse to auscultation in all lobes; right lateral rib tenderness to palpation, no crepitus[] Skin: Warm, dry, no erythema, no rash. [] Extremities: No cyanosis, no clubbing, ROM intact, no edema. [] Neurologic: Alert and oriented X 3, normal motor function, normal sensory function, no focal deficits noted. [] Psychologic: Affect normal, judgement normal, mood normal. [] Current Patient Data Vital Signs Vital Signs Date Time Temp Pulse Resp B/P (MAP) Pulse Ox O2 Delivery O2 Flow Rate FiO2 08/24/18 22:17 97 Room Air 08/24/18 21:30 98.3 73 20 124/71 (88) 98.3 Lab Values Laboratory Tests Test 08/24/18 22:20 White Blood Count 7.4 x10^3/uL (4.0-11.0) Red Blood Count 4.04 x10^6/uL (3.50-5.40) Hemoglobin 12.5 g/dL (12.0-15.5) Hematocrit 37.3 % (36.0-47.0) Mean Corpuscular Volume 92 fL (79-100) Mean Corpuscular Hemoglobin 31 pg (25-35) Mean Corpuscular Hemoglobin Concent 33 g/dL (31-37) Red Cell Distribution Width 13.2 % (11.5-14.5) Platelet Count 217 x10^3/uL (140-400) Neutrophils (%) (Auto) 58 % (31-73) Lymphocytes (%) (Auto) 31 % (24-48) Monocytes (%) (Auto) 8 % (0-9) Eosinophils (%) (Auto) 2 % (0-3) Basophils (%) (Auto) 0 % (0-3) Neutrophils # (Auto) 4.3 x10^3uL (1.8-7.7) Lymphocytes # (Auto) 2.3 x10^3/uL (1.0-4.8) Monocytes # (Auto) 0.6 x10^3/uL (0.0-1.1) Eosinophils # (Auto) 0.2 x10^3/uL (0.0-0.7) Basophils # (Auto) 0.0 x10^3/uL (0.0-0.2) Sodium Level 143 mmol/L (136-145) Potassium Level 3.3 mmol/L (3.5-5.1) L Chloride Level 105 mmol/L (98-107) Carbon Dioxide Level 30 mmol/L (21-32) Anion Gap 8 (6-14) Blood Urea Nitrogen 10 mg/dL (7-20) Creatinine 0.6 mg/dL (0.6-1.0) Estimated GFR (Cockcroft-Gault) 103.8 BUN/Creatinine Ratio 17 (6-20) Glucose Level 106 mg/dL (70-99) H Calcium Level 8.7 mg/dL (8.5-10.1) Magnesium Level 1.5 mg/dL (1.8-2.4) L Total Bilirubin 0.3 mg/dL (0.2-1.0) Aspartate Amino Transferase (AST) 31 U/L (15-37) Alanine Aminotransferase (ALT) 24 U/L (14-59) Alkaline Phosphatase 111 U/L (46-116) Total Protein 6.5 g/dL (6.4-8.2) Albumin 2.9 g/dL (3.4-5.0) L Albumin/Globulin Ratio 0.8 (1.0-1.7) L Laboratory Tests 08/24/18 22:20 Laboratory Tests 08/24/18 22:20 EKG EKG [] Radiology/Procedures Radiology/Procedures CXR No acute findings or infiltrates, as read by Dr. Michele.[] Course & Med Decision Making Course & Med Decision Making Pertinent Labs and Imaging studies reviewed. (See chart for details) Dx: costochondritis, acute; cough, hypokalemia, hypomagnesemia Patient was given a breathing treatment in the emergency department following the breathing treatment lung sounds improved however. remained course in bases bilaterally. She reported feeling better. 10 mg of Decadron was given IV. 40 meq KCL and 400 mg of magnesium oxide was also given. Chest x-ray was negative for pneumonia or acute findings. Recommend use of a Cool mist humidifier in room at bedtime. Alternate Tylenol or ibuprofen as needed for pain/fever. Increase clear fluids. Avoid airway triggers such as smoke, fragrance, dust, and pollen. Follow-up with your primary care doctor symptoms persist, return to the ER symptoms worsen. Patient verbalized an understanding of home care, medications, follow-up, and return to ED instructions and was in agreement with the plan of care. [] Dragon Disclaimer Dragon Disclaimer This electronic medical record was generated, in whole or in part, using a voice recognition dictation system. Departure Departure Impression: Primary Impression: Costochondritis, acute Additional Impressions: Painful cough Hypokalemia Hypomagnesemia Disposition: 01 HOME, SELF-CARE Condition: STABLE Referrals: DOM BURNETT MD (PCP) Patient Instructions: Costochondritis, [id number], Hypokalemia-Brief, Hypomagnesemia Additional Instructions: Recommend use of a Cool mist humidifier in room at bedtime. Continue taking your pain medications and inhalers as prescribed. Increase clear fluids. Avoid airway triggers such as smoke, fragrance, dust, and pollen. Follow-up with your primary care doctor symptoms persist, return to the ER symptoms worsen. Problem Qualifiers KEITH JARQUIN APRN Aug 24, 2018 21:54
[2018-08-24] MEDS ORDERED: DEXAMETHASONE SOD PHOS 20 MG/5 ML VIAL. PO ONE (22:00)
[2018-08-24] MEDS ORDERED: IPRATRPIUM/ALBUTEROL 0.5/2.5MG 3 ML NEBU. NEB ONE (22:00)
[2018-08-24 22:50] LABS: BASO % 0 % (0-3); EOS # 0.2 x10^3/uL (0.0-0.7); EOS % 2 % (0-3); HEMATOCRIT 37.3 % (36.0-47.0); HEMOGLOBIN 12.5 g/dL (12.0-15.5); LYMPH # 2.3 x10^3/uL (1.0-4.8); LYMPH % 31 % (24-48); MEAN CORPUSCULAR HEMOGLOBIN 31 pg (25-35); MEAN CORPUSCULAR HGB CONC 33 g/dL (31-37); MEAN CORPUSCULAR VOLUME 92 fL (79-100); MONO # 0.6 x10^3/uL (0.0-1.1); MONO % 8 % (0-9); NEUT # 4.3 x10^3uL (1.8-7.7); NEUT % 58 % (31-73); PLATELET COUNT 217 x10^3/uL (140-400); RED BLOOD COUNT 4.04 x10^6/uL (3.50-5.40); RED CELL DISTRIBUTION WIDTH 13.2 % (11.5-14.5); WHITE BLOOD COUNT 7.4 x10^3/uL (4.0-11.0)
[2018-08-24 23:03] LABS: CALCIUM 8.7 mg/dL (8.5-10.1); CREATININE 0.6 mg/dL (0.6-1.0); GFR 103.8; POTASSIUM 3.3 mmol/L (3.5-5.1)
[2018-08-24 23:07] LABS: ALBUMIN 2.9 g/dL (3.4-5.0); ALBUMIN/GLOBULIN RATIO 0.8 (1.0-1.7); MAGNESIUM 1.5 mg/dL (1.8-2.4); TOTAL BILIRUBIN 0.3 mg/dL (0.2-1.0); TOTAL PROTEIN 6.5 g/dL (6.4-8.2)
[2018-08-24] MEDS ORDERED: POTASSIUM CHLORIDE 20 MEQ TABLET.ER. PO ONE (23:15)
[2018-08-24] MEDS ORDERED: MAGNESIUM OXIDE 400 MG TABLET ONE (23:29)
--- NOTE | 2018-08-25 06:26 | RAD ---
EXAM: PA and Lateral Views of the Chest DATE: 08/24/2018 10:03 PM INDICATION: Cough short of breath and left side rib pain COMPARISON: 05/18/2018, 10/09/2017 FINDINGS: The heart is not enlarged. Mediastinal and hilar contours are normal. Patchy right lung base likely airspace opacities, possibly atelectasis or scarring. Accounting for differences in technique this is not significantly changed compared to 10/09/2017. No lobar consolidation. No pleural effusion or pneumothorax. IMPRESSION: No evidence for acute cardiopulmonary process. Electronically signed by: Sohail Arceo MD (08/25/2018 6:23 AM) [facility] [id number]
[2018-08-25] MEDS ORDERED: MAGNESIUM OXIDE 400 MG TABLET PO SCH (09:00)
== END 2018-08-24 23:50 | disposition home or self-care (01) ==
LOC: ER 21:17
DX: M94.0 Chondrocostal junction syndrome [Tietze] (principal); E87.6 Hypokalemia; E83.42 Hypomagnesemia; J44.9 Chronic obstructive pulmonary disease, unspecified; G89.29 Other chronic pain; Z88.5 Allergy status to narcotic agent; Z88.8 Allergy status to other drugs, medicaments and biological substances
CPT/HCPCS: 36415; 71046; 80053; 83735; 85025; 94640; 99284; J1100; J7620